=== PATIENT | male | born 1980 | race Caucasian/White ===

== ENCOUNTER 2021-06-05 11:26 | Observation (INO) ==
[2021-06-05] MEDS ORDERED: SODIUM CHLORIDE 0.9% 500 ML IV STA (11:44)
[2021-06-05] MEDS ORDERED: ASPIRIN CHEW 324 MG PO STA (11:44)
[2021-06-05] MEDS: NITROGLYCERIN SL 0.4 MG/TAB TAB SL PRN ×2 (11:52→12:17)
--- NOTE | 2021-06-05 11:55 | Emergency Department Note ---
History of Present Illness General Chief complaint: Chest Pain Stated complaint: CHEST PAIN, L ARM NUMBNESS, SWEATING Time Seen by Provider: 06/05/21 11:35 Source: patient and family (Who is at the bedside) Mode of arrival: ambulatory Limitations: no limitations History of Present Illness Maximum Pain Intensity: 7 This patient 40-year-old male comes in for evaluation of chest pain. He said that this woke him up around 3:00 in the morning. It does radiate on his left arm. He is described as pressure it does come and go in severity but never goes away was 8 out of 10 now he appears comfortable with says is 5 out of 10. He did not have any nausea no shortness of breath or pleurisy. He has got some swelling in his right leg from where he broke his ankle 2 months ago but that is unchanged. No blood or melena stool. Nothing particular made his pain better he tried Tums he took 2 baby aspirin. It may be worse with movement. Has had no symptoms like this before no cardiac work-up Home Medications Medication Instructions Recorded Confirmed Type metformin 500 mg tablet 500 mg PO BID #180 tab 12/09/20 06/05/21 Rx aspirin 81 mg tablet,delayed 81 mg PO DAILY 06/05/21 06/05/21 History release Allergies Allergy/AdvReac Type Severity Reaction Status Date / Time No Known Drug Allergies Allergy Verified 06/05/21 13:35 Past Med/Surg History Medical History History of COVID-19 Dx 07/2020 > tested d/t positive contacts, pt remained asymptomatic History of kidney stones Morbid obesity with BMI of 40.0-44.9, adult Type 2 diabetes mellitus NIDDM Surgical History History of open reduction and internal fixation (ORIF) procedure Left femur, subsequent hardware removal History of wisdom tooth extraction Status post cholecystectomy Family History Father Myocardial infarction Mother Brain cancer Diabetes Other No family history of adverse response to anesthesia Denies family history of Ovarian cancer Prostate cancer Breast cancer Colorectal cancer Social History Smoking Status: Never smoker Tobacco Type: Smokeless Tobacco (Dip or Chew) Second Hand Exposure: No; Hx Alcohol Use: No Hx Substance Use: No Preferred Language: Kazakh Communication Ability: Effective Visual Impairment: No Limitations Hearing Ability: Normal Contact Lens Polisher Required: No Beliefs That Will Affect Care: None marital status: Current Living Situation: Spouse Current Living Situation Comment: Lives with and son current occupational status: employed current occupation: communication equipment mechanic Other Information That Helps Us Care for You: No Feels Safe at Home: Yes caffeine: Yes during the past year weight has: increased > 10 lbs Dental Care, Regularly: No Physical Activity Frequency: 5-6 Times per Week Seatbelt Use: sometimes Sunscreen Use: No Assistive Devices: None Review of Systems A total of 10 systems reviewed and were otherwise negative Physical Exam Vital Signs Vital Signs - 24 hr 06/05/21 11:27 06/05/21 11:47 06/05/21 12:18 Temperature 36.8 C Temperature Source Temporal Artery Scan Pulse Rate 107 H Pulse Rate [Apical] 112 H Respiratory Rate 18 20 Blood Pressure 155/99 H Blood Pressure [Right Arm] 112/96 Blood Pressure Mean 117 Blood Pressure Mean [Right Arm] 101 Blood Pressure Position Sitting Pulse Oximetry 96 98 Oxygen Delivery Method Room Air Room Air Room Air Sepsis Recent Fever Within 48 Hours No Sepsis New/Unexplained Change in Mental Status No Sepsis Action Taken by Nursing No Action Required General: Well developed well nourished middle-aged male who appears in no acute distress, breathing comfortably on room air. Normal speech HEENT: Normal cephalic atraumatic. Pupils are equal round and reactive to light. Extraocular movements are intact. Oropharynx is pink with moist mucous membranes. No swelling of the mouth lips or tongue. Neck: Supple with a midline trachea. No meningeal signs or stiffness, no JVD or bruits. No Stridor. Chest: Clear to auscultation bilaterally. No wheezes or rhonchi. No increased work of breathing. Not reproducibly tender Heart: Regular rate and rhythm without murmurs or gallops. Abdomen: Soft nontender, nondistended without rebound guarding or rigidity. Extremities: No cyanosis clubbing or edema. No calf tenderness or assymetry Spine/Back. Non tender to palpation. No CVA tenderness Skin: Good turgor without rashes. Neurologic exam: Cranial nerves two through 12 are intact. Motor and sensation are intact and symmetrical throughout. Course Administered Medications Nitroglycerin (Nitroglycerin Sl 0.4 Mg/Tab Tab) 0.4 mg SL UD PRN PRN Reason: Chest Pain Stop: 07/05/21 11:43 Last Admin: 06/05/21 12:17 Dose: 0.4 mg Documented by: [id number] Admin: 06/05/21 11:52 Dose: 0.4 mg Documented by: [id number] Discontinued Medications Aspirin (Aspirin Chew 324 Mg) 324 mg PO NOW STA Stop: 06/05/21 11:45 Last Admin: 06/05/21 11:52 Dose: 324 mg Documented by: [id number] Sodium Chloride (Nss) 500 mls @ 999 mls/hr IV .Q31M STA Stop: 06/05/21 12:14 Last Infusion: 06/05/21 13:38 Dose: 0 mls/hr Documented by: [id number] Admin: 06/05/21 12:19 Dose: 999 mls/hr Documented by: [id number] Ioversol (Optiray 320 125ml) 120 ml IV ONCE ONE Stop: 06/05/21 12:40 Last Admin: 06/05/21 12:41 Dose: 120 ml Documented by: [id number] Nitroglycerin (Nitroglycerin 2% Ointment 30gm Tube) 1 inch EXT NOW ONE Stop: 06/05/21 13:07 Last Admin: 06/05/21 13:38 Dose: 1 inch Documented by: [id number] Medical Decision Making Differential Diagnosis Acute coronary syndrome, arrhythmia, GERD, CHF, infection, dissection, PE, musculoskeletal, anxiety, COVID Medical Records Attestation: I reviewed the patient's medical records. Home Medications Current Medication List: was personally reviewed by me Laboratory Data Attestation: I reviewed the patient's lab results. Result diagrams: 06/05/21 11:40 06/05/21 11:40 Lab Results 06/05/21 06/05/21 06/05/21 Range/Units 11:40 11:40 11:40 WBC 8.10 (4.8-10.8) K/uL RBC 5.60 (4.7-6.1) M/uL Hgb 17.2 (14.0-18.0) g/dL Hct 49.2 (42-52) % MCV 87.9 (80-100) fL MCH 30.7 (25-34) pg MCHC 35.0 (32-36) g/dL RDW Std Deviation 44.2 (36.4-46.3) fL RDW Coeff of Ben 13.6 (11.5-14.5) % Plt Count 295 (130-400) K/uL MPV 9.1 (7.4-10.4) fL Immature Gran % (Auto) 0.1 % Neut % (Auto) 66.2 % Lymph % (Auto) 26.4 % [place] % (Auto) 4.4 % Eos % (Auto) 2.8 % Baso % (Auto) 0.1 % Neut # (Auto) 5.35 (1.4-6.5) K/uL Lymph # (Auto) 2.14 (1.2-3.4) K/uL [place] # (Auto) 0.36 (0.11-0.59) K/uL Eos # (Auto) 0.23 (0-0.5) K/uL Baso # (Auto) 0.01 (0-0.2) K/uL Immature Gran # (Auto) 0.01 (0.00-0.02) K/uL PT 10.6 (9.0-12.0) Seconds INR 1.0 (0.9-1.1) APTT 30.8 (21.0-31.0) Seconds PTT Ratio 1.1 D-Dimer 940 H* (0-500) ug/L FEU Sodium 138 (136-145) mmol/L Potassium 3.7 (3.5-5.1) mmol/L Chloride 107 (98-107) mmol/L Carbon Dioxide 23 (21-32) mmol/L Anion Gap 8 (3-11) BUN 20 (6-23) mg/dl Creatinine 0.83 (0.6-1.4) mg/dl Est Cr Clr Drug Dosing 146.9 ml/min Est GFR ( Amer) 125.8 ml/min Est GFR (Non-Af Amer) 108.5 ml/min BUN/Creatinine Ratio 24.1 H (10-20) Glucose 148 H (70-99(Fasting)) mg/dl Calcium 8.3 L (8.5-10.1) mg/dl Magnesium (1.7-2.4) mg/dl Total Bilirubin 1.0 (0.2-1.0) mg/dl AST 48 H (13-39) U/L ALT 65 H (7-52) U/L Alkaline Phosphatase 66 (34-104) U/L Troponin I < 0.03 (0-0.04) ng/ml Total Protein 7.4 (6.0-8.3) gm/dl Albumin 4.2 (3.4-5.0) gm/dl Globulin 3.2 (2.5-4.0) gm/dl Albumin/Globulin Ratio 1.3 (0.9-2) Lipase 15 (11-82) U/L SARS-CoV-2, RNA, NAAT (NEGATIVE) 06/05/21 06/05/21 Range/Units 11:40 12:15 WBC (4.8-10.8) K/uL RBC (4.7-6.1) M/uL Hgb (14.0-18.0) g/dL Hct (42-52) % MCV (80-100) fL MCH (25-34) pg MCHC (32-36) g/dL RDW Std Deviation (36.4-46.3) fL RDW Coeff of Ben (11.5-14.5) % Plt Count (130-400) K/uL MPV (7.4-10.4) fL Immature Gran % (Auto) % Neut % (Auto) % Lymph % (Auto) % [place] % (Auto) % Eos % (Auto) % Baso % (Auto) % Neut # (Auto) (1.4-6.5) K/uL Lymph # (Auto) (1.2-3.4) K/uL [place] # (Auto) (0.11-0.59) K/uL Eos # (Auto) (0-0.5) K/uL Baso # (Auto) (0-0.2) K/uL Immature Gran # (Auto) (0.00-0.02) K/uL PT (9.0-12.0) Seconds INR (0.9-1.1) APTT (21.0-31.0) Seconds PTT Ratio D-Dimer (0-500) ug/L FEU Sodium (136-145) mmol/L Potassium (3.5-5.1) mmol/L Chloride (98-107) mmol/L Carbon Dioxide (21-32) mmol/L Anion Gap (3-11) BUN (6-23) mg/dl Creatinine (0.6-1.4) mg/dl Est Cr Clr Drug Dosing ml/min Est GFR ( Amer) ml/min Est GFR (Non-Af Amer) ml/min BUN/Creatinine Ratio (10-20) Glucose (70-99(Fasting)) mg/dl Calcium (8.5-10.1) mg/dl Magnesium 1.9 (1.7-2.4) mg/dl Total Bilirubin (0.2-1.0) mg/dl AST (13-39) U/L ALT (7-52) U/L Alkaline Phosphatase (34-104) U/L Troponin I (0-0.04) ng/ml Total Protein (6.0-8.3) gm/dl Albumin (3.4-5.0) gm/dl Globulin (2.5-4.0) gm/dl Albumin/Globulin Ratio (0.9-2) Lipase (11-82) U/L SARS-CoV-2, RNA, NAAT NEGATIVE (NEGATIVE) Imaging Data Attestation: I personally reviewed and interpreted this imaging study as follows: My Impression: Chest x-rayno acute infiltrate, failure, pneumothorax seen Radiologist's Impression: Chest X-Ray 06/05/21 11:44 SINGLE VIEW CHEST CLINICAL HISTORY: Atypical chest pain. FINDINGS: An AP, portable, upright chest radiograph is obtained. No prior studies are available for comparison at the time of dictation. The cardiomediastinal silhouette is unremarkable. There is elevation of the right hemidiaphragm with bibasilar atelectasis. The lungs and pleural spaces are clear. No pneumothorax is seen. The bony thorax is grossly intact. IMPRESSION: No active disease in the chest. ACT 112: Negative or not required by law. Electronically signed by: Juan Jose Sanchez M.D. 06/05/2021 12:56 PM Chest CTA 06/05/21 12:12 CT ANGIOGRAM OF THE CHEST CLINICAL HISTORY: Atypical chest pain. COMPARISON STUDY: Chest x-ray dated 06/05/2021. TECHNIQUE: Following the IV administration of 120 cc of Optiray 320, CT angiogram of the chest was performed from the upper abdomen to the thoracic inlet utilizing the pulmonary embolus protocol. Images are reviewed in the axial, sagittal, and coronal planes. 3-D MIPS images are created and assessed. IV contrast was administered without complication. A dose lowering technique was utilized adhering to the principles of ALARA. CT DOSE: 719.04 mGy.cm FINDINGS: Thyroid: Imaged portions of the thyroid gland are normal in size and attenuation. Thoracic aorta: The thoracic aorta is normal in caliber and demonstrates standard 3-vessel arch anatomy. No dissection is seen. Pulmonary vasculature: The pulmonary trunk is normal in caliber. There are no filling defects identified in main, lobar, or segmental pulmonary branches to suggest pulmonary embolus. Heart: The heart is normal in size and without pericardial effusion. Lungs and pleural spaces: The lungs and pleural spaces are clear. There is mild elevation of the right hemidiaphragm. The trachea and central airways are patent. Mediastinum: There is no mediastinal lymphadenopathy. Nancy: Clear. Axillae: There is no axillary lymphadenopathy. Upper abdomen: Adequate. Cholecystectomy clips are noted. Skeletal structures: No lytic or blastic bony lesions are seen. IMPRESSION: 1. There is no evidence of pulmonary embolus in the main, lobar, or segmental pulmonary arteries. 2. There is no airspace consolidation or pleural effusion. 3. Hepatic steatosis. ACT 112: Negative or not required by law. Electronically signed by: Juan Jose Sanchez M.D. 06/05/2021 1:31 PM ECG Data Attestation: I personally reviewed and interpreted this ECG as follows: Indication: + chest pain Rate (beats per minute): 98 Rhythm: + normal sinus ECG Intervals/blocks: + Incomplete right bundle branch block ECG [place]: + Normal ECG ST segments: + Normal ST segments ECG Findings: no PACs or no PVCs Comparison ECG Date: from (01/06/21) Change: no significant change Additional Comments: EKG #2: Normal sinus rhythm with a rate of 76. No acute ischemic changes or ectopy. No change when compared EKG #1 MDM Narrative This patient comes in as described above. He was placed on a hall monitor and room A2. He has been having chest pain since around 3:00 in the morning. EKG was obtained and shows no acute ischemic changes when compared to old. IV access was established and he was given an adult 324 aspirin. He was given a nitroglycerin trial with sublingual nitroglycerin. He does have multiple cardiac risk factors, namely diabetes family history with his father having stents placed at age 42. The patient did receive sublingual nitroglycerin x2 and the pain went down to 0-1 and he feels much better. An inch of paste of nitroglycerin was placed at the time. He had 2 EKGs here which did not show any ischemic changes compared to old and there is no change between 1 and 2. His initial troponin is negative. His D-dimer is mildly elevated in light of this I did a CTA of his chest. There is no evidence of PE or aortic dissection or other pulmonary pathology. I do think the patient needs to be admitted/observe for further cardiac work-up and I have consulted Dr. Cuevas and the [facility] to see him in ER for these measures. Continuous cardiac monitoring: Orders placed in EMR for continuous hall monitor. Upon my interpretation patient was to be normal sinus rhythm with a rate of 90 Impression & Plan Chest pain, Family history of heart disease, Diabetes mellitus type 2 in obese, D-dimer, elevated, Lab test negative for COVID-19 virus Discharge Plan Visit Data Chief Complaint: Chest Pain Stated Complaint: CHEST PAIN, L ARM NUMBNESS, SWEATING ED Provider: Jurgen Cha Discharge Problem: Chest pain, Family history of heart disease, Diabetes mellitus type 2 in obese, D-dimer, elevated, Lab test negative for COVID-19 virus Patient Disposition: Admitted As Inpatient Discharge Instructions Interventions: ED Discharge Assessment Last Done: 06/05/21 14:25 Discharge Problem: Chest pain Qualifiers: Chest pain type: precordial pain Qualified Code(s): R07.2 - Precordial pain
--- NOTE | 2021-06-05 11:56 | Electrocardiogram Report ---
Test Reason : Blood Pressure : / mmHG Vent. Rate : 098 BPM Atrial Rate : 098 BPM P-R Int : 124 ms QRS Dur : 100 ms QT Int : 348 ms P-R-T Axes : 042 063 034 degrees QTc Int : 444 ms Normal sinus rhythm Incomplete right bundle branch block Borderline ECG When compared with ECG of 06-JAN-2021 08:54, No significant change was found Confirmed by Will Montes ([id number]) on 06/05/2021 11:56:07 AM Referred By: REFERRED SELF Confirmed By:Paul Montes
[2021-06-05 11:57] LABS: Basophils # (auto) 0.01 K/uL (0-0.2); Basophils % (auto) 0.1 %; Eosinophils # (auto) 0.23 K/uL (0-0.5); Eosinophils % (auto) 2.8 %; Hematocrit (blood only) 49.2 % (42-52); Hemoglobin 17.2 g/dL (14.0-18.0); Immature Granulocytes # (auto) 0.01 K/uL (0.00-0.02); Immature Granulocytes % (auto) 0.1 %; Lymphocytes # (auto) 2.14 K/uL (1.2-3.4); Lymphocytes % (auto) 26.4 %; Mean Corpuscular Hemoglobin 30.7 pg (25-34); Mean Corpuscular Volume 87.9 fL (80-100); Mean Platelet Volume 9.1 fL (7.4-10.4); Monocytes # (auto) 0.36 K/uL (0.11-0.59); Monocytes % (auto) 4.4 %; Neutrophils # (auto) 5.35 K/uL (1.4-6.5); Neutrophils % (auto) 66.2 %; Platelet Count 295 K/uL (130-400); RDW Coefficient of Variation 13.6 % (11.5-14.5); RDW Standard Deviation 44.2 fL (36.4-46.3)
[2021-06-05 12:08] LABS: Partial Thromboplastin Ratio 1.1; Partial Thromboplastin Time 30.8 Seconds (21.0-31.0); Prothrombin Time 10.6 Seconds (9.0-12.0)
[2021-06-05 12:09] LABS: Alanine Aminotransferase 65 U/L (7-52); Albumin Globulin Ratio 1.3 (0.9-2); Albumin Level 4.2 gm/dl (3.4-5.0); Alkaline Phosphatase 66 U/L (34-104); Anion Gap 8 (3-11); Aspartate Aminotransferase 48 U/L (13-39); BUN Creatinine Ratio 24.1 (10-20); Blood Urea Nitrogen 20 mg/dl (6-23); Calcium 8.3 mg/dl (8.5-10.1); Carbon Dioxide 23 mmol/L (21-32); Chloride 107 mmol/L (98-107); Creatinine Clr Calc Pharmacy 146.9 ml/min; D Dimer 940 ug/L FEU (0-500); Est GFR (African American) 125.8 ml/min; Est GFR (Non-African American) 108.5 ml/min; Globulin 3.2 gm/dl (2.5-4.0); Glucose 148 mg/dl (70-99(Fasting)); Lipase 15 U/L (11-82); Potassium 3.7 mmol/L (3.5-5.1); Sodium 138 mmol/L (136-145); Total Protein 7.4 gm/dl (6.0-8.3); Troponin I < 0.03 ng/ml (0-0.04)
[2021-06-05] MEDS ORDERED: OPTIRAY 320 125ml IV ONE (12:39)
--- NOTE | 2021-06-05 12:57 | XRay Report ---
SINGLE VIEW CHEST CLINICAL HISTORY: Atypical chest pain. FINDINGS: An AP, portable, upright chest radiograph is obtained. No prior studies are available for c omparison at the time of dictation. The cardiomediastinal silhouette is unremarkable. There is eleva tion of the right hemidiaphragm with bibasilar atelectasis. The lungs and pleural spaces are clear. N o pneumothorax is seen. The bony thorax is grossly intact. IMPRESSION: No active disease in the chest. ACT 112: Negative or not required by law. Electronically signed by: Juan Jose Sanchez M.D. 06/05/2021 12:56 PM
[2021-06-05] MEDS ORDERED: NITROGLYCERIN 2% OINTMENT 30GM TUBE EXT ONE (13:06)
--- NOTE | 2021-06-05 13:33 | CT Scan Report ---
CT ANGIOGRAM OF THE CHEST CLINICAL HISTORY: Atypical chest pain. COMPARISON STUDY: Chest x-ray dated 06/05/2021. TECHNIQUE: Following the IV administration of 120 cc of Optiray 320, CT angiogram of the chest was pe rformed from the upper abdomen to the thoracic inlet utilizing the pulmonary embolus protocol. Images are reviewed in the axial, sagittal, and coronal planes. 3-D MIPS images are created and assessed. I V contrast was administered without complication. A dose lowering technique was utilized adhering to the principles of ALARA. CT DOSE: 719.04 mGy.cm FINDINGS: Thyroid: Imaged portions of the thyroid gland are normal in size and attenuation. Thoracic aorta: The thoracic aorta is normal in caliber and demonstrates standard 3-vessel arch anato my. No dissection is seen. Pulmonary vasculature: The pulmonary trunk is normal in caliber. There are no filling defects identif ied in main, lobar, or segmental pulmonary branches to suggest pulmonary embolus. Heart: The heart is normal in size and without pericardial effusion. Lungs and pleural spaces: The lungs and pleural spaces are clear. There is mild elevation of the righ t hemidiaphragm. The trachea and central airways are patent. Mediastinum: There is no mediastinal lymphadenopathy. Nancy: Clear. Axillae: There is no axillary lymphadenopathy. Upper abdomen: Adequate. Cholecystectomy clips are noted. Skeletal structures: No lytic or blastic bony lesions are seen. IMPRESSION: 1. There is no evidence of pulmonary embolus in the main, lobar, or segmental pulmonary arteries. 2. There is no airspace consolidation or pleural effusion. 3. Hepatic steatosis. ACT 112: Negative or not required by law. Electronically signed by: Juan Jose Sanchez M.D. 06/05/2021 1:31 PM
--- NOTE | 2021-06-05 13:52 | History & Physical Report ---
Date of Service June 05, 2021 Assessment & Plan (1) Chest pain: Plan: -DDx at this point is new onset/unstable angina versus GERD. Given patient risk factors including obesity and diabetes, family history of heart disease on father's side, as well as chest pressure that radiated down left arm and neck, responded to Nitro-Bid have to consider this may be new onset angina. Factors that favor a GI process include chest pain with onset at rest while sleeping after fatty meal that afternoon. PE ruled out with CTA of chest. -Initial troponin negative, EKG without ST segment, T wave changes. -Trend troponin Q6h x2, repeat EKG with any new/changed chest pain. -Continue Nitro-Bid for pain management. Could consider GI cocktail. -Heart healthy diet, n.p.o. at midnight for planned stress test in AM. (2) Type 2 diabetes mellitus: Plan: -Glucose 148 in ED. -Metformin 500mg BID at home, d/c this while in house -Accuchecks achs with SSI. -HgbA1c in AM. (3) LFT elevation: Plan: -AST 48, ALT 65, decreased from last admission in December 2020. -Hepatic steatosis noted on chest CTA. Plan: -OBS medsurg with telemetry. -SCDS, lovenox for DVT ppx. -Full Code. History of Present Illness Chief Complaint: chest pain since 3 am today Primary Care Provider: KATHERINE Garcia Patient is 40-year-old male with PMH significant for DM2, obesity, and recent ankle fracture s/p ORIF in December 2020 who presents today with chest pain. Patient awoke from his sleep with this pain around 3 AM, states it was a 7-8 out of 10 pressure-like sensation in the center of his chest with radiation down his left arm and some numbness and tingling to his fingers. He took aspirin and Tums at home without alleviation. No change to chest pain with positions or respirations, no recent injury to chest wall. Has not experienced chest pain previously, he did previously experience severe GERD, taking Tums unique [id number] when he was on Ozempic, however this has been discontinued and he has been without GERD symptoms since. His meal yesterday consisted of grilled chicken and fried apples at [employer] for lunch, and ice cream in the evening. Reports a vague, minimal abdominal pain with chest pain, however no nausea or vomiting, sour brash, fever/chills, diaphoresis, shortness of breath, weakness, dizziness, palpitations, or radiation of pain to back, no focal weakness, no decrease sensation. No personal history of heart disease, however states an extensive history of it on his father side in his father, uncles, and grandfather. Patient had ORIF in 2020, has some baseline swelling of the right ankle since then without any acute changes today. Has been taking a daily baby aspirin on and off since then. No calf pain. In ED, pt is tachycardic with an HR 112, otherwise VS wnl, stable. Labs largely unremarkable, significant for glucose 148, AST 48 and ALT 65. Initial troponin negative, d-dimer mildly elevated at 940, CTA negative for PE, did show hepatitis steatosis. He received aspirin and sublingual nitroglycerin which brought his pain to 45/10, Nitropaste was applied, patient reports total alleviation of pain now. Hospitalist service consulted for further evaluation and admission. Allergies Allergy/AdvReac Type Severity Reaction Status Date / Time No Known Drug Allergies Allergy Verified 06/05/21 13:35 Home Medications Medication Instructions Recorded Confirmed Type metformin 500 mg tablet 500 mg PO BID #180 tab 12/09/20 06/05/21 Rx aspirin 81 mg tablet,delayed 81 mg PO DAILY 06/05/21 06/05/21 History release Past Med/Surg History Medical History History of COVID-19 Dx 07/2020 > tested d/t positive contacts, pt remained asymptomatic History of kidney stones Morbid obesity with BMI of 40.0-44.9, adult Type 2 diabetes mellitus NIDDM Surgical History History of open reduction and internal fixation (ORIF) procedure Left femur, subsequent hardware removal History of wisdom tooth extraction Status post cholecystectomy Family History Father Myocardial infarction Mother Brain cancer Diabetes Other No family history of adverse response to anesthesia Denies family history of Ovarian cancer Prostate cancer Breast cancer Colorectal cancer Social History Smoking Status: Never smoker Tobacco Type: Smokeless Tobacco (Dip or Chew) Second Hand Exposure: No; Hx Alcohol Use: No Hx Substance Use: No Preferred Language: Bengali Communication Ability: Effective Visual Impairment: No Limitations Hearing Ability: Normal Public Service Director Required: No Beliefs That Will Affect Care: None marital status: Current Living Situation: Spouse Current Living Situation Comment: Lives with and son current occupational status: employed current occupation: mechanical service representative Other Information That Helps Us Care for You: No Feels Safe at Home: Yes caffeine: Yes during the past year weight has: increased > 10 lbs Dental Care, Regularly: No Physical Activity Frequency: 5-6 Times per Week Seatbelt Use: sometimes Sunscreen Use: No Assistive Devices: None Review of Systems Review of Systems: Constitutional: No fever, sweats or chills Eyes: No diplopia, no worsening or blurred vision ENT: normal hearing, no trouble swallowing, no sour brash Respiratory: No cough, sputum, dyspnea at rest or on exertion Cardiovascular: Chest pressure with radiation to left neck, left arm, 7-8/10 initially; no diaphoresis, tightness, or palpitations Abdomen: Mild, vague abdominal pain associated with chest pressure; no nausea, vomiting, diarrhea or constipation Musculoskeletal: No joint pain, calf pain, swelling Neurologic: No weakness, numbness/tingling, or balance problems Psychiatric: No anxiety or depression Skin: No rash or itch Physical Exam Physical Exam: General: awake, alert, no apparent distress Head: Normocephalic, atraumatic ENT: PERRL, EOMI, no pharyngeal exudate, mucous membranes moist Chest: Clear to auscultation, on room air, no adventitious breath sounds Cardiac: Regular rate and rhythm, no murmur, no JVD, normal peripheral pulses, good capillary refill Abdominal: NABS x 4 quadrants, soft, nontender to palpation, no rebound, guarding or tenderness Extremities: Normal inspection, no peripheral edema or erythema, calfs nontender to palpation Psych: Normal mood and affect Neuro: AAO x 3, strength intact bilaterally and rated 5/5, no motor deficits, speech is clear, no peripheral sensory deficits Skin: no rash or erythema Results & Data Results & Data ([facility]) Vital Signs (Past 12 Hours) Vital Signs Temp Pulse Pulse Resp BP BP Pulse Ox 06/05/21 12:18 112 H 20 112/96 98 06/05/21 11:27 36.8 C 107 H 18 155/99 H 96 Laboratory Results Abnormal lab results 06/05/21 06/05/21 Range/Units 11:40 11:40 D-Dimer 940 H* (0-500) ug/L FEU BUN/Creatinine Ratio 24.1 H (10-20) Glucose 148 H (70-99(Fasting)) mg/dl Calcium 8.3 L (8.5-10.1) mg/dl AST 48 H (13-39) U/L ALT 65 H (7-52) U/L Diagnostic Findings Chest X-Ray 06/05/21 11:44 SINGLE VIEW CHEST CLINICAL HISTORY: Atypical chest pain. FINDINGS: An AP, portable, upright chest radiograph is obtained. No prior studies are available for comparison at the time of dictation. The cardiomediastinal silhouette is unremarkable. There is elevation of the right hemidiaphragm with bibasilar atelectasis. The lungs and pleural spaces are clear . No pneumothorax is seen. The bony thorax is grossly intact. IMPRESSION: No active disease in the chest. Chest CTA 06/05/21 12:12 CT ANGIOGRAM OF THE CHEST CLINICAL HISTORY: Atypical chest pain. COMPARISON STUDY: Chest x-ray dated 06/05/2021. TECHNIQUE: Following the IV administration of 120 cc of Optiray 320, CT angiogram of the chest was performed from the upper abdomen to the thoracic inlet utilizing the pulmonary embolus protocol. Images are reviewed in the axial, sagittal, and coronal planes. 3-D MIPS images are created and assessed. IV contrast was administered without complication. A dose lowering technique was utilized adhering to the principles of ALARA. CT DOSE: 719.04 mGy.cm FINDINGS: Thyroid: Imaged portions of the thyroid gland are normal in size and attenuation. Thoracic aorta: The thoracic aorta is normal in caliber and demonstrates standard 3-vessel arch anatomy. No dissection is seen. Pulmonary vasculature: The pulmonary trunk is normal in caliber. There are no filling defects identified in main, lobar, or segmental pulmonary branches to suggest pulmonary embolus. Heart: The heart is normal in size and without pericardial effusion. Lungs and pleural spaces: The lungs and pleural spaces are clear. There is mild elevation of the right hemidiaphragm. The trachea and central airways are patent. Mediastinum: There is no mediastinal lymphadenopathy. Nancy: Clear. Axillae: There is no axillary lymphadenopathy. Upper abdomen: Adequate. Cholecystectomy clips are noted. Skeletal structures: No lytic or blastic bony lesions are seen. IMPRESSION: 1. There is no evidence of pulmonary embolus in the main, lobar, or segmental pulmonary arteries. 2. There is no airspace consolidation or pleural effusion. 3. Hepatic steatosis. ECG Additional Comments: Normal sinus rhythm Incomplete right bundle branch block Borderline ECG When compared with ECG of 06-JAN-2021 08:54, No significant change was found Code Status & VTE Plan Code Status Full Code. Supervising Physician Co-Signing Physician Notes Patient was seen and examined independently I discussed the case with Rubia COELLO I reviewed pertinent past medical social family history and also the plan of care and agree with the plan of care. Patient has significant cardiac risk factors including family history diabetes overweight he also had his discomfort which awoke him at night which is is chronic contrary to being cardiac disease. 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 He has not had no chest pains while at work recently. In the emergency department his initial evaluation was unremarkable but with his risk factors we felt prudent to keep the patient collect serial enzymes and echocardiogram and stress test in the morning. If his enzymes change or EKG changes we may consider asking cardiology to evaluate him for catheterization in lieu of the stress test but this will yet to be determined. Currently the patient is pain-free after nitroglycerin paste. Physical exam the patient's awake alert appropriate as mentioned pain is relieved cardiac exam is regular lungs are clear I cannot reproduce the pain by pushing on his chest wall. He does recently have an ankle fracture but his ankle exam is without pain I do believe he can walk on the treadmill if he needs to. Any exceptions will be noted below PG Care Time/CCT Total # of Minutes Spent Total Time Spent with Patient: Total time spent is greater than 50% in coordination of care (as documented) at patient's floor/unit and/or counseling patient: Coding Level of Care Code INT OBSERVATION CARE 50M LVL 2 Diagnoses Chest pain R07.9 Type 2 diabetes mellitus E11.9 LFT elevation R79.89
[2021-06-05] MEDS ORDERED: DEXTROSE 50% 50 ML SYRINGE IV PRN (14:55)
[2021-06-05] MEDS ORDERED: ONDANSETRON INJ 2 MG/ML 2 ML VIAL IV PRN (14:55)
[2021-06-05] MEDS ORDERED: GLUCOSE 40% GEL 15 GM TUBE PO PRN (14:55)
[2021-06-05] MEDS ORDERED: POLYETHYLENE (MIRALAX) 17 GM PACK PO PRN (14:55)
[2021-06-05] MEDS ORDERED: GLUCOSE 10 TABS/TUBE PO PRN (14:55)
[2021-06-05] MEDS ORDERED: ACETAMINOPHEN 325 MG TAB PO PRN (14:55)
[2021-06-05] MEDS ORDERED: GLUCAGON FOR INJ 1 MG VIAL SQ PRN (14:55)
[2021-06-05] MEDS ORDERED: CARBOHYDRATES FOR HYPOGLYCEMIA PO PRN (14:55)
--- NOTE | 2021-06-05 16:12 | Electrocardiogram Report ---
Test Reason : Blood Pressure : / mmHG Vent. Rate : 096 BPM Atrial Rate : 096 BPM P-R Int : 132 ms QRS Dur : 094 ms QT Int : 360 ms P-R-T Axes : 041 071 035 degrees QTc Int : 454 ms Poor data quality, interpretation may be adversely affected Normal sinus rhythm Incomplete right bundle branch block Borderline ECG When compared with ECG of 05-JUN-2021 11:32, No significant change was found Confirmed by Will Montes ([id number]) on 06/05/2021 4:11:35 PM Referred By: REFERRED SELF Confirmed By:Paul Montes
[2021-06-05] MEDS: INSULIN ASPART PER UNIT SC SCH ×2 (16:53→20:33)
[2021-06-05] MEDS ORDERED: NITROGLYCERIN 2% OINTMENT 30GM TUBE ONE (16:56)
[2021-06-05] MEDS: NITROGLYCERIN 2% OINTMENT 30GM TUBE EXT SCH ×2 (17:01→23:57)
[2021-06-05] MEDS: HEPARIN SOD 5,000 UNIT/0.5 ML VIAL SQ SCH (20:33)
[2021-06-06] MEDS ORDERED: LACTATED RINGER'S 1,000 ML IV SCH (00:01)
[2021-06-06 05:50] LABS: Basophils # (auto) 0.01 K/uL (0-0.2); Basophils % (auto) 0.1 %; Eosinophils # (auto) 0.36 K/uL (0-0.5); Eosinophils % (auto) 5.1 %; Hematocrit (blood only) 44.7 % (42-52); Hemoglobin 15.1 g/dL (14.0-18.0); Immature Granulocytes # (auto) 0.02 K/uL (0.00-0.02); Immature Granulocytes % (auto) 0.3 %; Lymphocytes # (auto) 2.08 K/uL (1.2-3.4); Lymphocytes % (auto) 29.3 %; Mean Corpuscular Hgb Conc 33.8 g/dL (32-36); Mean Corpuscular Volume 88.9 fL (80-100); Mean Platelet Volume 9.1 fL (7.4-10.4); Monocytes # (auto) 0.54 K/uL (0.11-0.59); Monocytes % (auto) 7.6 %; Neutrophils % (auto) 57.6 %; Platelet Count 239 K/uL (130-400); RDW Coefficient of Variation 13.8 % (11.5-14.5); RDW Standard Deviation 45.1 fL (36.4-46.3); Red Blood Count 5.03 M/uL (4.7-6.1); White Blood Count 7.11 K/uL (4.8-10.8)
[2021-06-06] MEDS: NITROGLYCERIN 2% OINTMENT 30GM TUBE EXT SCH (06:00)
[2021-06-06 06:16] LABS: BUN Creatinine Ratio 26.3 (10-20); Calcium 7.8 mg/dl (8.5-10.1); Chol HDL Ratio 2.7 (0-5); Est GFR (African American) 130.4 ml/min; Est GFR (Non-African American) 112.5 ml/min; Potassium 3.8 mmol/L (3.5-5.1)
[2021-06-06] MEDS: HEPARIN SOD 5,000 UNIT/0.5 ML VIAL SQ SCH (07:28)
[2021-06-06] MEDS: INSULIN ASPART PER UNIT SC SCH (07:28)
[2021-06-06 07:30] LABS: Estimated Average Glucose 120 mg/dl; Hemoglobin A1C 5.8 % (4.5-5.6)
--- NOTE | 2021-06-06 08:21 | Hospitalist Progress Note ---
Date of Service June 06, 2021 Assessment & Plan (1) Chest pain: Plan: -DDx at this point is new onset/unstable angina versus GERD. Given patient risk factors including obesity and diabetes, family history of heart disease on father's side, as well as chest pressure that radiated down left arm and neck, responded to Nitro-Bid have to consider this may be new onset angina. Factors that favor a GI process include chest pain with onset at rest while sleeping after fatty meal that afternoon. PE ruled out with CTA of chest. -Initial troponin negative, EKG without ST segment, T wave changes. -Trend troponin Q6h x2, repeat EKG with any new/changed chest pain. -Continue Nitro-Bid for pain management. Could consider GI cocktail. -Heart healthy diet, n.p.o. at midnight for planned stress test in AM. 06/06 Trop negative x 3 NPO this morning for stress echo, LR @80cc/hr while NPO A1c 5.8 (improved from prior in 6s), Lipid panel god control -- TRG 77, Chol 88, HDL 30, LDL 37 (2) Type 2 diabetes mellitus: Plan: -Glucose 148 in ED, A1c 5.8 on am labs Holding metformin 500mg BID while inpatient, but can continue current dosing at discharge SSI while inpatient (3) LFT elevation: Plan: AST 48, ALT 65, decreased from last admission in December 2020. -Hepatic steatosis noted on chest CTA. Plan: -OBS medsurg with telemetry. -SCDS, lovenox for DVT ppx. -Full Code. Admission and Anticipated Discharge Date Admission Date: June 05, 2021 Results & Data Results & Data ([facility]) Vital Signs (Past 12 Hours) Vital Signs Temp Pulse Pulse Resp BP Pulse Ox 06/06/21 07:06 74 06/06/21 07:00 36.6 C 81 20 114/66 96 06/06/21 03:25 36.5 C 80 20 147/82 H 97 06/05/21 22:30 36.5 C 80 20 122/74 96 06/05/21 22:23 83 PG Care Time/CCT Total # of Minutes Spent Total Time Spent with Patient: Total time spent is greater than 50% in coordination of care (as documented) at patient's floor/unit and/or counseling patient: Coding Diagnoses Chest pain R07.9 Type 2 diabetes mellitus E11.9 LFT elevation R79.89
[2021-06-06] MEDS ORDERED: ASPIRIN 81 MG ECTAB PO SCH (09:00)
[2021-06-06 09:29] LABS: Albumin Level 3.5 gm/dl (3.4-5.0); Bilirubin Direct 0.1 mg/dl (0-0.2); Bilirubin,Total 0.7 mg/dl (0.2-1.0)
--- NOTE | 2021-06-06 09:45 | Discharge Summary ---
Date of Service June 06, 2021 Admission HPI Per Admitting Provider Patient is 40-year-old male with PMH significant for DM2, obesity, and recent ankle fracture s/p ORIF in December 2020 who presents today with chest pain. Patient awoke from his sleep with this pain around 3 AM, states it was a 7-8 out of 10 pressure-like sensation in the center of his chest with radiation down his left arm and some numbness and tingling to his fingers. He took aspirin and Tums at home without alleviation. No change to chest pain with positions or respirations, no recent injury to chest wall. Has not experienced chest pain previously, he did previously experience severe GERD, taking Tums arou [id number]-[id number] when he was on Ozempic, however this has been discontinued and he has been without GERD symptoms since. His meal yesterday consisted of grilled chicken and fried apples at [employer] for lunch, and ice cream in the evening. Reports a vague, minimal abdominal pain with chest pain, however no nausea or vomiting, sour brash, fever/chills, diaphoresis, shortness of breath, weakness, dizziness, palpitations, or radiation of pain to back, no focal weakness, no decrease sensation. No personal history of heart disease, however states an extensive history of it on his father side in his father, uncles, and grandfather. Patient had ORIF in 2020, has some baseline swelling of the right ankle since then without any acute changes today. Has been taking a daily baby aspirin on and off since then. No calf pain. In ED, pt is tachycardic with an HR 112, otherwise VS wnl, stable. Labs largely unremarkable, significant for glucose 148, AST 48 and ALT 65. Initial troponin negative, d-dimer mildly elevated at 940, CTA negative for PE, did show hepatitis steatosis. He received aspirin and sublingual nitroglycerin which brought his pain to 45/10, Nitropaste was applied, patient reports total alleviation of pain now. Hospitalist service consulted for further evaluation and admission. Admission Exam Per Admitting Provider General: awake, alert, no apparent distress Head: Normocephalic, atraumatic ENT: PERRL, EOMI, no pharyngeal exudate, mucous membranes moist Chest: Clear to auscultation, on room air, no adventitious breath sounds Cardiac: Regular rate and rhythm, no murmur, no JVD, normal peripheral pulses, good capillary refill Abdominal: NABS x 4 quadrants, soft, nontender to palpation, no rebound, guarding or tenderness Extremities: Normal inspection, no peripheral edema or erythema, calfs nontender to palpation Psych: Normal mood and affect Neuro: AAO x 3, strength intact bilaterally and rated 5/5, no motor deficits, speech is clear, no peripheral sensory deficits Skin: no rash or erythema Principal Diagnosis Chest Pain Discharge Exam General: WD, WN obese male sitting up in bed, NAD Eyes anicteric, pupils equal and reactive to light, EOMI Trachea midline without deviation Resp: CTAB, no wheezes/crackles/rales, on room air CV: RRR, no murmur, rub, gallop, pulses palpable, no calf edema GI: +BS, non-tender, no rebound or guarding : no moyer Skin: no obvious lesions/rashes, warm, dry Psych: AOx3, pleasant and cooperative MSK/Neuro: CN intact grossly, moves all extremities, follows commands, speech clear, strength equal bilaterally Discharge Data Allergies Allergy/AdvReac Type Severity Reaction Status Date / Time No Known Drug Allergies Allergy Verified 06/05/21 13:35 Consultations 06/05/21 13:58 ED Decision to Admit Stat Ordered Studies Chest X-Ray 06/05/21 11:44 SINGLE VIEW CHEST CLINICAL HISTORY: Atypical chest pain. FINDINGS: An AP, portable, upright chest radiograph is obtained. No prior studies are available for comparison at the time of dictation. The cardiomediastinal silhouette is unremarkable. There is elevation of the right hemidiaphragm with bibasilar atelectasis. The lungs and pleural spaces are clear. No pneumothorax is seen. The bony thorax is grossly intact. IMPRESSION: No active disease in the chest. ACT 112: Negative or not required by law. Electronically signed by: Juan Jose Sanchez M.D. 06/05/2021 12:56 PM Chest CTA 06/05/21 12:12 CT ANGIOGRAM OF THE CHEST CLINICAL HISTORY: Atypical chest pain. COMPARISON STUDY: Chest x-ray dated 06/05/2021. TECHNIQUE: Following the IV administration of 120 cc of Optiray 320, CT angiogram of the chest was performed from the upper abdomen to the thoracic inlet utilizing the pulmonary embolus protocol. Images are reviewed in the axial, sagittal, and coronal planes. 3-D MIPS images are created and assessed. IV contrast was administered without complication. A dose lowering technique was utilized adhering to the principles of ALARA. CT DOSE: 719.04 mGy.cm FINDINGS: Thyroid: Imaged portions of the thyroid gland are normal in size and attenuation. Thoracic aorta: The thoracic aorta is normal in caliber and demonstrates standard 3-vessel arch anatomy. No dissection is seen. Pulmonary vasculature: The pulmonary trunk is normal in caliber. There are no filling defects identified in main, lobar, or segmental pulmonary branches to suggest pulmonary embolus. Heart: The heart is normal in size and without pericardial effusion. Lungs and pleural spaces: The lungs and pleural spaces are clear. There is mild elevation of the right hemidiaphragm. The trachea and central airways are patent. Mediastinum: There is no mediastinal lymphadenopathy. Nancy: Clear. Axillae: There is no axillary lymphadenopathy. Upper abdomen: Adequate. Cholecystectomy clips are noted. Skeletal structures: No lytic or blastic bony lesions are seen. IMPRESSION: 1. There is no evidence of pulmonary embolus in the main, lobar, or segmental pulmonary arteries. 2. There is no airspace consolidation or pleural effusion. 3. Hepatic steatosis. ACT 112: Negative or not required by law. Electronically signed by: Juan Jose Sanchez M.D. 06/05/2021 1:31 PM 06/06 Stress Echocardiogram Hospital Course (1) Chest pain: Admitted with concerns for unstable angina vs GERD -- strong family history of CAD, obesity and DM personally. Had CP with radiation down left arm/neck --> resolved after Nitro-BID Trop negative x 3 Stress ECHO completed --> no recurrance of chest pain. Able to achieve 6 minutes. Of note, HR didn't reach max though A1c 5.8 (improved from prior in 6s), Lipid panel god control -- TRG 77, Chol 88, HDL 30, LDL 37 Does have favorable GI process given ate at [employer]/fried foods while sleeping after fatty meal as well -- did have hx of period of time taking tums/omeprazole around the clock --> discussed if recurrance, would benefit from OTC prilosec daily/f/u PCP No further chest pain reported --> diet advanced and no issues. Stable for discharge (2) Type 2 diabetes mellitus: a1c with improvement to 5.8 on AM labs Continue metformin 500mg BID at discharge (3) LFT elevation: AST 48, ALT 65, decreased from last admission in December 2020. -Hepatic steatosis noted on chest CTA. No abd pain OBS medsurg with telemetry. SCDS, lovenox for DVT ppx while inpatient Total Time Total Time Spent Total Time Spent (In Minutes): 35 Discharge Plan Discharge Items Patient Disposition: Home - Self-Care Reason For Visit: CHEST PAIN Discharge Diagnosis: Chest Pain, RULE OUT ACS Goals: You have been hospitalized for an acute medical problem. During your stay at [facility], we have made an effort to correct the problem that brought you to the hospital while keeping you as comfortable as possible. Medications were used to bring your condition under control and your discharge instructions will include directions for any medications you should take after leaving the hospital. Please make sure you see your Primary Care Provider as part of your follow up plan. Activity: Resume your previous activity Non-emergency contact: Primary Care Provider Call non-emergency contact if: you have any medication questions, your symptoms worsen, your pain is not controlled and your pain is worsening Follow-up/Referrals: Brandon Perkins CRNP [Primary Care Provider] - Diet: Carb Consistent or DM2 and Heart Healthy Addtl Attending Provider Instructions: You have been hospitalized for chest pain. Troponin (cardiac enzyme) was trended and NEGATIVE x 3. You had a CT of your c hest as well that was NEGATIVE for pulmonary embolism. Lipid panel shows good control of cholesterol. A1c was actually improved from prior value and you can continue your metformin as previously taking. If you develop repeat symptoms after eating, these may be reflux in nature and you can consider a PPI like omeprazole/prilosec over the counter for symptom control. You should follow up with your PCP in the next 7-10 days to monitor your progress. You should return to the ER with any worsening chest pain, shortness of breath, fever, chills, or for any other symptoms concerning for you. Take care! Pending Studies at Discharge: No Stand-Alone Forms: My [facility] Medications and DC Order Prescriptions: Continued metformin 500 mg tablet 500 mg PO BID Qty: 180 RF: 3 aspirin 81 mg Tablet,Delayed Release (Dr/Ec) 81 mg PO DAILY RF: 0 Discharge Orders: Discharge Order (Routine); Ordered 06/06/21 Ordered By: Joycelyn Charles Admission Data Admit Date/Time: 06/05/21 13:56 Attending Provider: Julio C Manzano Admit Provider: Hilario Cuevas Primary Care Provider: Brandon Perkins Other Providers: Rubia Rodas ; Hilario Cuevas Coding Level of Care Code 83753 OBS Care - Discharge Diagnoses Chest pain R07.9 Type 2 diabetes mellitus E11.9 LFT elevation R79.89
[2021-06-06] MEDS ORDERED: CALCIUM GLUCONATE 10% 1,000 MG in DEXTROSE 5% 50 ML IV ONE (13:22)
[2021-06-06] MEDS ORDERED: STAT IV STA (13:22)
== END 2021-06-06 14:32 | disposition home or self-care (01) ==
LOC: 2N 11:26 → ED 11:26 → SUATTDRO 13:56 → 2N 14:25